=== PATIENT | male | born 2000 | race Caucasian/White ===

== ENCOUNTER 2022-03-15 22:26 | Emergency (ER) | payer OTHER ==
[2022-03-15 22:31] VITALS: RESP 18
[2022-03-15] MEDS ORDERED: ONDANSETRON 4 MG/2 ML VIAL IVP STA (22:45)
[2022-03-15] MEDS ORDERED: KETOROLAC 15 MG/ML 1 ML VIAL IVP STA (22:45)
--- NOTE | 2022-03-15 22:52 | ED ---
Abdominal Pain HPI - General Chief Complaint: Abdominal Pain Stated Complaint: R sided abd pain Time Seen by Provider: 03/15/22 22:38 Source: family, RN notes reviewed Mode of arrival: wheelchair Limitations: no limitations - History of Present Illness Initial Comments: This is a pleasant 21-year-old male who presents to emergency department complaining of right flank pain. Pain started about 8 PM. Patient states it was quite sudden. Patient asked he states the pain seemed to start on the left side. Patient then had about 3 episodes of vomiting. No hematemesis or coffee- ground emesis. No hematuria. No change in bowel movements. Patient states that the pain is now in the right flank and right low back area. Patient denying any injury. Pain not exacerbated by movement or position. No alleviating factors. No headache, no fever or chills, no changes in vision or hearing, no sore throat or difficulty with speech, no neck pain, no chest pain or shortness of breath, no abdominal pain,no changes in urination or bowel movements, no numbness or tingling, no extremity pain, no skin rashes or lesions. Past medical, surgical, social, and family history reviewed. MD Complaint: flank pain - Related Data Previous Rx's Medication Instructions Recorded Acetaminophen Tab [Tylenol Tab] 500 mg PO Q6H PRN #24 tablet 03/16/22 Ibuprofen [Motrin] 600 mg PO Q8HR PRN #30 tab 03/16/22 Tamsulosin [Flomax] 0.4 mg PO DAILY #5 cap 03/16/22 Allergies Allergy/AdvReac Type Severity Reaction Status Date / Time No Known Allergies Allergy Verified 03/15/22 22:31 Review of Systems ROS Statement: Those systems with pertinent positive or pertinent negative responses have been documented in the HPI. ROS Other: All systems not noted in ROS Statement are negative. Past Medical History Past Medical History: No Reported History History of Any Multi-Drug Resistant Organisms: None Reported Past Surgical History: Orthopedic Surgery Past Psychological History: No Psychological Hx Reported Smoking Status: Never smoker Past Alcohol Use History: None Reported Past Drug Use History: None Reported General Exam Limitations: no limitations General appearance: alert, in distress Head exam: Present: atraumatic, normocephalic, normal inspection Eye exam: Present: normal appearance, PERRL, EOMI. Absent: scleral icterus, conjunctival injection, periorbital swelling ENT exam: Present: normal exam, mucous membranes moist, normal external ear exam Neck exam: Present: normal inspection, full ROM. Absent: tenderness, meningismus, lymphadenopathy Respiratory exam: Present: normal lung sounds bilaterally. Absent: respiratory distress, wheezes, rales, rhonchi, stridor Cardiovascular Exam: Present: regular rate, normal rhythm, normal heart sounds. Absent: systolic murmur, diastolic murmur, rubs, gallop, clicks GI/Abdominal exam: Present: soft, normal bowel sounds. Absent: distended, tenderness, guarding, rebound, rigid Extremities exam: Present: normal inspection, full ROM, normal capillary refill. Absent: tenderness, pedal edema, joint swelling, calf tenderness Back exam: Present: normal inspection, full ROM, CVA tenderness (R). Absent: tenderness, CVA tenderness (L), muscle spasm, paraspinal tenderness, vertebral tenderness Neurological exam: Present: alert, oriented X3, CN II-XII intact Psychiatric exam: Present: normal affect, normal mood Skin exam: Present: warm, dry, intact, normal color. Absent: rash Course Vital Signs 03/15/22 03/16/22 22:28 01:32 EDT Temperature 99.4 F 98.3 F Pulse Rate 89 94 Respiratory 18 18 Rate Blood Pressure 140/87 140/97 O2 Sat by Pulse 100 99 Oximetry - Reevaluation(s) Reevaluation #1: 03/16/22 01:38 EDT Patient computed tomography scan does show evidence of a small calcification in the proximal ureter on the right. Informed the patient. I did advise renal function testing. Again, patient is effusing blood draw, refusing any medications or interventions involving needles. I did splint the patient this is not optimal. Patient is alert and oriented 4. Here with his father. Patient able to make his own medical decisions. She willing to take the risks of not having renal function testing or laboratory investigations. We'll give the patient follow-up with urology. Medical Decision Making - Medical Decision Making Given the patient's presentation, nephrolithiasis with likely be #1 in the differential. However it is strange that the patient's pain seemed to start on the left and migrated to the right. Musculoskeletal back pain is possible. Patient really has no abdominal tenderness. No hematuria. This is certainly a mixed picture. Patient has a 4 mm right-sided proximal ureteral stone with mild hydronephrosis. Advised renal function testing which the patient is refusing. Patient refusing any interventions that involves needles. The case was discussed in detail with ED attending physician. Presentation, findings, treatment plan discussed in detail. Imposer Dr. Hayes - Lab Data Lab Results 03/16/22 Range/Units 01:19 EST Urine Color Yellow Urine Appearance Clear (Clear) Urine pH 8.0 (5.0-8.0) Ur Specific Blunt 1.018 (1.001-1.035) Urine Protein Trace H (Negative) Urine Glucose (UA) Negative (Negative) Urine Ketones 1+ H (Negative) Urine Blood Large H (Negative) Urine Nitrite Negative (Negative) Urine Bilirubin Negative (Negative) Urine Urobilinogen <2.0 (<2.0) mg/dL Ur Leukocyte Esterase Negative (Negative) Urine RBC >182 H (0-5) /hpf Urine WBC 3 (0-5) /hpf Urine Mucus Occasional H (None) /hpf Disposition Clinical Impression: Ureterolithiasis, Hydronephrosis Narrative: Right-sided hydronephrosis Disposition: HOME SELF-CARE Condition: Good Instructions (If sedation given, give patient instructions): Kidney Stones (ED), How to Strain Your Urine (ED) Additional Instructions: Follow-up with your regular physician as directed. Return to the ER immediately if any symptoms worsen, new symptoms arise, or any other problems develop. Strain the urine as directed. Follow up with the urologist. Call Thursday morning for a follow-up appointment. Is patient prescribed a controlled substance at d/c from ED?: No Referrals: Gagan Aldrich MD [STAFF PHYSICIAN] - 03/19/22 Time of Disposition: 01:26
[2022-03-15] MEDS ORDERED: ACETAMINOPHEN TAB 500 MG TAB PO STA (23:15)
--- NOTE | 2022-03-16 00:50 | CT ---
EXAMINATION TYPE: CT abdomen pelvis wo con DATE OF EXAM: 03/15/2022 COMPARISON: 2 views HISTORY: Right flank pain. no prior on PACS. best images possible due to pt. not following breathin g instructions or holding still. CT DLP: 697.8 mGycm Automated exposure control for dose reduction was used. Images obtained from the diaphragm to the floor the pelvis with no contrast. The lung bases are clear of infiltrate. No pleural effusion. Heart is top normal in size. No pericard ial effusion. There is fatty infiltration of the liver. Spleen is intact. The pancreas appears normal. Stomach is i ntact. Gallbladder is intact. The bile ducts are not dilated. There is no adrenal mass. Kidneys show normal size and contour. There is slight fullness of the right renal pelvis and likely a 4 mm calculus in the proximal right ureter. Exam limited by motion. Bladd er distends smoothly. No inguinal hernia. No free fluid in the pelvis. No evidence of a pelvic mass. Appendix is medial and appears normal. There is no mesenteric edema. No ascites or free air. No sign of a bowel obstruction. The lumbar vert ebrae have normal alignment. No compression fracture. Disc spaces are normal. The bony pelvis is inta ct. The hip joints are intact. IMPRESSION: There is some fatty infiltration of the liver. There is likely a small obstructing calculus in the pr oximal right ureter close to the ureteropelvic junction with minimal fullness of the right renal pelv is. Exam limited by motion.
[2022-03-16] MEDS ORDERED: TAMSULOSIN 0.4 MG CAP.ER.24H PO STA (01:26)
[2022-03-16 01:33] VITALS: BP 140/97; PULSE 94; TEMP 98.3
[2022-03-16] MEDS ORDERED: IBUPROFEN 600 MG TAB PO STA (01:37)
[2022-03-16 01:40] LABS: Appearance,Urine Clear (Clear); Bilirubin,Urine Negative (Negative); Blood,Urine Large (Negative); Color,Urine Yellow; Glucose,Urine (UA) Negative (Negative); Ketones,Urine 1+ (Negative); Leukocyte Esterase,Urine Negative (Negative); Mucus,Urine Occasional /hpf; Nitrite,Urine Negative (Negative); Protein,Urine Trace (Negative); RBC,Urine >182 /hpf (0-5); Specific Gravity,Urine 1.018 (1.001-1.035); Urobilinogen,Urine <2.0 mg/dL (<2.0); WBC,Urine 3 /hpf (0-5)
== END 2022-03-16 01:32 | disposition home or self-care (01) ==
LOC: EC 22:26
DX: N20.1 Calculus of ureter (principal); N13.30 Unspecified hydronephrosis
CPT/HCPCS: 74176; 81001; 99284